=== PATIENT | male | born 1990 | race Caucasian/White ===

== ENCOUNTER 2017-12-06 18:19 | Emergency (ER) | payer SELFPAY ==
--- NOTE | 2017-12-06 19:42 | CT ---
HEAD CT WITHOUT CONTRAST 12/06/17 COMPARISON: None. HISTORY: Trauma, pain. TECHNIQUE: Serial axial CT imaging is obtained at 5 mm intervals from vertex through skull base without contrast . FINDINGS: The imaged paranasal sinuses and mastoid air cells are well aerated. There is no displaced calvarial fracture. No intracranial hemorrhage, midline shift, mass effect or ventricular enlargement. IMPRESSION: No intracranial hemorrhage or displaced calvarial fracture. POS: [facility]
--- NOTE | 2017-12-06 19:50 | RAD ---
THREE VIEWS OF THE RIGHT HAND 12/06/17 COMPARISON: None. HISTORY: Trauma, pain. FINDINGS: No displaced fracture or evidence of dislocation is seen. There is soft tissue swelling, most promine nt along the dorsal aspect of the metacarpals. IMPRESSION: Soft tissue swelling. POS: [facility]
== END 2017-12-06 20:07 | disposition home or self-care (01) ==
LOC: ERS 18:19
DX: S06.0X9A Concussion with loss of consciousness of unspecified duration, initial encounter (principal); S60.221A Contusion of right hand, initial encounter; F90.9 Attention-deficit hyperactivity disorder, unspecified type; Z79.899 Other long term (current) drug therapy; Y04.0XXA Assault by unarmed brawl or fight, initial encounter
CPT/HCPCS: 70450